=== PATIENT | male | born 1955 | race African-American/Black ===

== ENCOUNTER 2025-07-20 07:51 | Outpatient (CLI) | payer OTHER | END 2025-07-20 07:52 | disposition home or self-care (01) | LOC: ULT 07:51 | PROVIDERS: ATTEND Physician Assistant Medical | DX: K74.69 Other cirrhosis of liver (principal); B19.20 Unspecified viral hepatitis C without hepatic coma; K80.20 Calculus of gallbladder without cholecystitis without obstruction | CPT/HCPCS: 76705 ==